=== PATIENT | male | born 1975 | race African-American/Black ===

== ENCOUNTER → 2017-07-22 | Outpatient (CLI) | payer OTHER | LOC: BMCIMAGING 10:24 | PROVIDERS: ATTEND Orthopaedic Surgery Hand Surgery | DX: S62.398A Other fracture of other metacarpal bone, initial encounter for closed fracture (principal) ==

== ENCOUNTER → 2017-08-19 | Outpatient (CLI) | payer OTHER | LOC: BMCIMAGING 08:49 | PROVIDERS: ATTEND Orthopaedic Surgery Hand Surgery | DX: Z09 Encounter for follow-up examination after completed treatment for conditions other than malignant neoplasm (principal); S62.347D Nondisplaced fracture of base of fifth metacarpal bone, left hand, subsequent encounter for fracture with routine healing; S62.346D Nondisplaced fracture of base of fifth metacarpal bone, right hand, subsequent encounter for fracture with routine healing ==

== ENCOUNTER → 2017-09-02 | Outpatient (CLI) | payer OTHER | LOC: BMCIMAGING 10:10 | PROVIDERS: ATTEND Orthopaedic Surgery Hand Surgery | DX: S62.337D Displaced fracture of neck of fifth metacarpal bone, left hand, subsequent encounter for fracture with routine healing (principal) ==